=== PATIENT | female | born 1950 | race Caucasian/White ===

== ENCOUNTER 2021-12-12 11:07 | Emergency (ER) | payer MEDICARE ==
[~2021-12-12] VITALS: Ht 157.5 cm; Wt 68.0 kg
[2021-12-12] MEDS ORDERED: TETRACAINE HCL 0.5% 4 ML OPHTH SOLN ONE (11:56)
[2021-12-12] MEDS ORDERED: NA BORATE/BORIC AC/H2O/NACL 120 ML OPHTH IRRIG SOLN ONE (11:56)
[2021-12-12] MEDS ORDERED: FLUORESCEIN SODIUM 1 STRIP STRIP ONE (11:56)
[2021-12-12] MEDS ORDERED: NEO/5DRO4 OP (12:15)
[2021-12-12 12:28] VITALS: BP 124/74
== END 2021-12-12 12:28 | disposition home or self-care (01) ==
LOC: EDH 11:07
DX: H10.9 Unspecified conjunctivitis (principal); E78.00 Pure hypercholesterolemia, unspecified; I10 Essential (primary) hypertension; K21.9 Gastro-esophageal reflux disease without esophagitis; Z88.2 Allergy status to sulfonamides; Z90.49 Acquired absence of other specified parts of digestive tract